=== PATIENT | male | born 1970 | race Hispanic/Latino ===

== ENCOUNTER 2024-02-12 07:33 | Day surgery (SDC) | payer BC ==
[~2024-02-12] VITALS: Ht 162.6 cm; Wt 81.6 kg
[2024-02-12] VITALS (10 sets, daily range): BP systolic 102–117; BP diastolic 64–75; PULSE 58–77; RESP 15–18; TEMP 97.1–97.7
[~2024-02-12 07:33] MED LIST: 0.9%NACL 1000ML 1,000 ML IV ONE
[2024-02-12] MEDS ORDERED: proPOFol 10 MG/ML 20ML VIAL IV ONE (10:52)
== END 2024-02-12 12:25 | disposition home or self-care (01) ==
LOC: DAH 07:33 → ENDO 07:33
PROVIDERS: ATTEND Internal Medicine Gastroenterology
DX: K59.04 Chronic idiopathic constipation (principal); K29.50 Unspecified chronic gastritis without bleeding; K22.89 Other specified disease of esophagus; K31.89 Other diseases of stomach and duodenum; R10.10 Upper abdominal pain, unspecified; R12 Heartburn; Z80.0 Family history of malignant neoplasm of digestive organs; Z86.0100 Personal history of colon polyps, unspecified; Z79.899 Other long term (current) drug therapy
CPT/HCPCS: 45378; 43239; J7030 ×2; J2704; A4615; A4215; A4223; A4222; A4221; A4663; A4606; J3490